=== PATIENT | male | born 1960 | race Two or more races ===

== ENCOUNTER 2023-10-18 06:46 | Outpatient (OUT) | payer BC, SELFPAY ==
[2023-10-18 07:24] LABS: Basophils Absolute Auto 0.1 10^3/uL (0.0-0.1); Basophils Percent Auto 0.8 % (0.2-2.0); Eosinophils Absolute Auto 0.1 10^3/uL (0.0-0.7); Eosinophils Percent Auto 1.4 % (0.9-7.0); Hematocrit 46.8 % (42.0-54.0); Hemoglobin 15.9 g/dL (14.0-18.0); Immature Granulocytes Abs Auto 0.01 10^3/uL (0.00-0.03); Immature Granulocytes Pct Auto 0.1 % (0.0-0.5); Lymphocytes Absolute Auto 4.1 10^3/uL (1.2-3.8); Lymphocytes Percent Auto 48.3 % (20.5-60.0); Mean Corpuscular Hemoglobin 31.8 pg (25.9-34.0); Mean Corpuscular Volume 93.6 fL (80.0-94.0); Mean Platelet Volume 9.6 fL (9.5-13.5); Monocytes Absolute Auto 0.6 10^3/uL (0.3-0.8); Monocytes Percent Auto 6.5 % (1.7-12.0); Neutrophils Absolute Auto 3.7 10^3/uL (1.4-6.5); Neutrophils Percent Auto 42.9 % (43.0-75.0); Platelet Count 337 10^3/uL (150-450); Red Cell Distribution Width 12.7 % (11.0-15.0); White Blood Count 8.6 10^3/uL (4.0-11.0)
[2023-10-18 08:18] LABS: Alanine Aminotransferase 43 U/L (16-63); Albumin Globulin Ratio 1.1; Albumin Level 3.8 g/dL (3.4-5.0); Alkaline Phosphatase 83 U/L (46-116); Anion Gap 15.9; Aspartate Amino Transferase 30 U/L (15-37); BUN Creatinine Ratio 9.8; Bilirubin Total 0.7 mg/dL (0.2-1.0); Calcium 9.2 mg/dL (8.5-10.1); Carbon Dioxide 24.3 mmol/L (21.0-32.0); Chloride 106 mmol/L (98-107); Chol HDL Ratio 6.1; Cholesterol 207 mg/dL (<=200); Estimated GFR (African America >60 (>=60); Estimated GFR (Non-African Ame >60 (>=60); Free T3 3.45 pg/mL (2.18-3.98); Globulin 3.5 g/dL; Glucose 112 mg/dL (74-106); HDL Cholesterol 34 mg/dL (40-60); Potassium 4.2 mmol/L (3.5-5.1); Sodium 142 mmol/L (136-145); Thyroid Stimulating Hormone 0.934 uIU/mL (0.358-3.740); Total Protein 7.3 g/dL (6.4-8.2); Triglycerides 206 mg/dL (<=150); VLDL CHOLESTEROL 41.2 mg/dL
[2023-10-18 14:41] LABS: Estimated Average Glucose 126 mg/dL
== END 2023-10-18 06:47 | disposition home or self-care (01) ==
LOC: LAB 06:50
PROVIDERS: PCP Family Medicine; Visit Provider Family Medicine
DX: Z00.00 Encounter for general adult medical examination without abnormal findings (principal); E78.5 Hyperlipidemia, unspecified; R73.09 Other abnormal glucose; Z12.5 Encounter for screening for malignant neoplasm of prostate
CPT/HCPCS: 36415; 80053; 80061; 83036; 84436; 84443; 84481; 85025; G0103

== ENCOUNTER 2024-11-23 06:54 | Outpatient (OUT) | payer BC, SELFPAY ==
[2024-11-23 07:31] LABS: Basophils Percent Auto 0.3 % (0.2-2.0); Eosinophils Percent Auto 0.2 % (0.9-7.0); Hematocrit 44.7 % (42.0-54.0); Hemoglobin 15.7 g/dL (14.0-18.0); Immature Granulocytes Abs Auto 0.06 10^3/uL (0.00-0.03); Immature Granulocytes Pct Auto 0.4 % (0.0-0.5); Lymphocytes Absolute Auto 3.6 10^3/uL (1.2-3.8); Mean Corpuscular HGB Conc 35.1 g/dL (29.9-35.2); Mean Corpuscular Hemoglobin 32.9 pg (25.9-34.0); Mean Corpuscular Volume 93.7 fL (80.0-94.0); Mean Platelet Volume 9.4 fL (9.5-13.5); Monocytes Absolute Auto 0.9 10^3/uL (0.3-0.8); Monocytes Percent Auto 6.5 % (1.7-12.0); Neutrophils Absolute Auto 9.2 10^3/uL (1.4-6.5); Neutrophils Percent Auto 66.6 % (43.0-75.0); Platelet Count 375 10^3/uL (150-450); Red Blood Count 4.77 10^6/uL (4.70-6.10); Red Cell Distribution Width 12.8 % (11.0-15.0); White Blood Count 13.9 10^3/uL (4.0-11.0)
[2024-11-23 07:54] LABS: Alanine Aminotransferase 38 U/L (16-63); Albumin Globulin Ratio 1.1; Albumin Level 3.8 g/dL (3.4-5.0); Alkaline Phosphatase 90 U/L (46-116); Anion Gap 13.1; Aspartate Amino Transferase 15 U/L (15-37); Bilirubin Total 0.6 mg/dL (0.2-1.0); Calcium 9.2 mg/dL (8.5-10.1); Chloride 106 mmol/L (98-107); Chol HDL Ratio 3.4; Cholesterol 159 mg/dL (<=200); Estimated GFR (African America >60 (>=60 mL/min/1.73m^2); Estimated GFR (Non-African Ame >60 (>=60 mL/min/1.73m^2); Free T3 3.06 pg/mL (2.18-3.98); Globulin 3.4 g/dL; Glucose 110 mg/dL (74-106); HDL Cholesterol 47 mg/dL (40-60); LDL Cholesterol Calculated 90.6 mg/dL; Potassium 4.1 mmol/L (3.5-5.1); Sodium 140 mmol/L (136-145); Thyroid Stimulating Hormone 0.589 uIU/mL (0.358-3.740); Total Protein 7.2 g/dL (6.4-8.2); Triglycerides 107 mg/dL (<=150); VLDL CHOLESTEROL 21.4 mg/dL
[2024-11-23 07:59] LABS: Prostate Specific Antigen Scrn 1.17 ng/mL (<=4.00)
[2024-11-23 09:09] LABS: Estimated Average Glucose 131 mg/dL; Glycohemoglobin A1C 6.2 % (4.5-6.2)
== END 2024-11-23 06:55 | disposition home or self-care (01) ==
LOC: LAB 06:56
PROVIDERS: PCP Family Medicine; Visit Provider Family Medicine
DX: Z00.00 Encounter for general adult medical examination without abnormal findings (principal)
CPT/HCPCS: 36415; 80053; 80061; 83036; 84436; 84443; 84481; 85025; G0103

== ENCOUNTER 2024-11-25 08:22 | Outpatient (REF) | payer BC, SELFPAY ==
--- OUTSIDE RECORDS SUMMARY | 2024-05-28 12:15 | XMS_ITS ---
Author Organization The [facility] in [place] Address [address] [place] [address] Care Team Providers Care Cured Meat Packing Supervisor Name Role Phone Domitila Buck Primary Care [...] Back pain (M54.9) Active confirmed Vital Signs Blood pressure systolic 132 mm Hg 05/28/20 24 Blood pressure diastolic 90 mm Hg 024 Height 65 in 05/28/2024 Weight 174.8 lbs 05/28/2024 BMI 29.09 kg/m2 05/28/2024 Encounters Encounter Location Date Provider Diagnosis [facility] [address] [place] [address] 05/28/2024 Buck Ramesh Back pain M54.9 Assessments [...] * Chuy SMITH CDOB:1960 (63 yo M)Acc No.[id number]:05/28/2024 Progress Note Patient: Chuy TEAGUE Provider: Frida Ramesh ([facility])MD :1960 A ge:63 Y S ex:Male Date:05/28/2024 Address:[address] [place], [place] [id number] Check In:04:02 PM ESTCheck O ut:04:52 PM [...] d enies. M usculoskeletal: Comments S ee [facility] for details. N eurologic: Dizziness d [...] 9 6372 THERAP.INJ. OF MED. INTRAMUSCULAR OR [id number] TMC ACET,PER 10MG., Units: 8.00 J1885 TORADOL, PER 15 MG, Units: 4.00 * Preventive Medicine: Screenings/Counseling: B MN ACTION PLAN Above Normal BMI Follow-up D ietary management education, guidance, and counseling * * Sign off status: Completed Visit Status: C HK (Check Out) true * Provider: Frida Ramesh ([facility])MD Date: 07/28/2023 Generated for Printi brittney/Jeffery/eTransmitting on: 0 11/26/2024 08:05 AM EDT History and Physical Notes * HPI (History of Present Illness) Category Sub-Category Detail Notes Category Not es General bakcpain - started 2-3 week ago - went o chiro - getting worse some pain into R buttocks but not into - occ getting electric shocks into legs Examination Category Sub-Category Detail Notes Category Not es General Examination GENERAL APPEARANCE: in no ac [place] distress, well developed, well nourished CARDIO: S1, S2 normal, no mu rmurs, rubs, gallops LUNGS: clear to auscultatio n bilaterally NEUROLOGIC: alert, oriented to t kiley, place, & person EXTREMITIES: no clubbing, cyanosi s, or edema MUSCULOSKELETAL: poor rom in back
--- OUTSIDE RECORDS SUMMARY | 2024-11-16 11:45 | XMS_ITS ---
Author Organization The [facility] in [place] Address [address] [place] [address] Care Team Providers Care Event Services Manager Name Role Phone Buck Ramesh Primary Care Provider Allergies No Known Allergies REASON FOR VISIT patient is co arthritis in his hands and knees, asking for an injection Medications Medication SIG (Take, Route, Fr equency, Duration) Notes Start Date End Date Status Protonix 40 MG 1 tablet Orally Ever y Evening for 30 day(s) Active Meloxicam 15 MG 1 tablet Orally Once a day for 30 days 11/16/2024 Active Social History Tobacco Use: Social History Observation Description Date Details (start date - stop date) Former Smoker 07/08/1975 - 07/08/2004 Tobacco Use/Smoking Question Answer Notes Patient is a former smoker When did you start smoking? 07/08/1975 When did you stop smoking? 07/08/2004 AUDIT-C (Standard) Question Answer Notes Did you have a drink containing alcohol in the p ast year? No Points 0 Interpretation Negative Vital Signs Blood pressure systolic 112 mm Hg 11/17/19 25 Blood pressure diastolic 70 mm Hg 025 Height 65 in 11/16/2024 Weight 169.2 lbs 11/16/2024 BMI 28.15 kg/m2 11/16/2024 Encounters Encounter Location Date Provider Diagnosis [facility] [address] [place] [address] 11/16/2024 Buck Ramesh Arthritis M19.90 ; Back pain M54.9 and Well adult Z00.00 Assessments Encounter Date Diagnosis (ICD Code) Assessment Notes Treatment Notes Treatment Clinical Notes Section Notes 11/16/2024 Arthritis (ICD-10 - M19.90) 11/16/2024 Back pain (ICD-10 - M54.9) 11/16/2024 Well adult (ICD-10 - Z00.00) Plan Of Treatment Medication Medication Name Sig Start Date Stop Date Notes Meloxicam 15 MG 1 tablet Orally Once a day for 30 days 06/2025 Pending Test Test Name Order Date HEMOGLOBIN A1C (GLYCO) 11/16/2024 LIPID PANEL (CHOL/TRIG/HDL/LDL) 11/17/19 STOOL OCCULT BLOOD 11/16/2024 THYROID PANEL (T4/TSH/FREE T3) PSA, SCREENING 11/16/2024 CMP (COMP MET AMIN) w/eGFR CKD-EPI 2024 CBC WITH DIFF 11/16/2024 Medications Administered Medication Instructions Date of Administration Dosage Notes Ketorolac Tromethamine 11/16/2024 60 mg Triamcinolone 40 mg/ml 11/16/2024 120 mg Progress Notes * KATIE Chuy CDOB:1960 (64 yo M)Acc No.[id number]:11/16/2024 Progress Note Patient: Chuy TEAGUE C Provider: Frida Ramesh ([facility])MD :1960 A ge:64 Y S ex:Male Date:11/16/2024 Address:[address] [place], [place] [id number] Check In:03:45 PM ESTCheck O ut:04:30 PM EST Subjective: * Chief Complaints: * P atient is co arthritis in his hands and knees, asking for an injection * HPI: G eneral: artritis acting up - no injury. * ROS: E ENT: hearing changes d enies. v isual changes d enies.?non-healing mouth sores d enies. s wollen glands or neck lumps d enies. h oarseness d enies. s ore throat d enies. d ifficulty swallowing d enies. n ose bleeds d enies. n keith congestion d enies. e ar ache d enies. e ar discharge?denies. r inging in ears d enies. l ight sensitivity d enies. e ye pain d enies. b lurring d enies. e ye irritation d enies. d ouble vision d enies.?vision loss d enies. G eneral/Constitutional: Sweats: D enies. F atigue d enies. S leep problems d enies. A norexia d enies. M alaise d enies. W eight loss d enies.?Fatigue or Weakness d enies. F ever or Chills d enies. C ardiovascular: Shortness of Breath w/lying flat d enies. L ightheadedness/dizziness d enies. C hest tightness/ heavy pressure d enies. S welling of legs, ankles, or feet d enies. W aking up with shortness of breath d enies. C hest pain denies. P alpitations d enies. W eight gain d enies. R espiratory: Chronic or frequent cough d enies. C oughing up blood?denies. D ifficulty breathing d enies. P roductive cough d enies. S noring?denies. S hortness of breath that awakens from sleep (PND) d enies. C hest pain d enies. S putum production d enies. W heezing d enies. M usculoskeletal: Joint pain d enies. J oint Fluid d enies. B ack pain d enies. K nee pain d enies. N siva pain d enies. J oint Stiffness d enies. M uscle cramps d enies. W eakness of muscles d enies. A rthritis d enies. M uscle aches d enies. P ain in shoulder(s) d enies. S wollen joints d enies. * Active Problem List M54.2 Neck pain Modified On:10/29/2022/U Status:confirmed M19.90 Arthritis Modified On:10/29/2022U Status:confirmed M25.519 Shoulder pain Modified On:10/29/2022U Status:confirmed K29.70 Gastritis Modified On:10/16/2023U Status:confirmed Z00.00 Well adult Modified On:10/16/2023U Status:confirmed U07.1 COVID-19 Modified On:10/29/2022W/U Status:confirmed M54.9 Back pain Modified On:05/28/2024W/U Status:confirmed * Medical History: * Surgical History: N o Surgical History documented. * Hospitalization/Major Diagno stic Procedure: N o Hospitalization History. * Family History: F ather: . M other: . B rother(s): alive. S ister(s): alive. S on(s): alive. 3 brother(s) , 3 sister(s) . 3 son(s) . . * Social History: T obacco Use: T obacco Use/Smoking P atient is a f ormer smoker W hen did you start smoking? 0 07/08/1975 W hen did you stop smoking? 0 07/08/2004 D rug/Alcohol: A MITZY-C (Standard) D id you have a drink containing alcohol in the past year? N o P oints 0 I nterpretation N egative * Medications: T akingProtonix(Pantoprazole Sodium) 40 MG Tablet Delayed Release 1 tablet Orally Every Evening Medication List reviewed and reconciled with the patientTaking Protonix(Pantoprazole Sodium) 40 MG Tablet Delayed Release 1 tablet Orally Every Evening Medication List reviewed and reconciled with the patient * Allergies: N .K.D.A.no[Allergies Verified] Objective: * Vitals: W t:169.2lbs, Ht: 65 in, BP:112/70mm Hg, BMI:28.15Index, Ht-cm: 165.1 cm, Wt-k.75 kg. * Examination: P hysical Exam: GENERAL: w ell developed, well nourished, in no acute distress. HEAD: n ormocephalic/atraumatic. EYES: p upils equal, round and reactive to light, conjunctivae and sclerae normal. EARS: n o deformity or lesion of external ear, canals and TM appear normal bilaterally, TM's intact, not inflamed with normal light reflex, hearing grossly normal to conversational speech. NOSE: n o deformity, discharge, inflammation, or lesions.? MOUTH: m ucous membranes moist, normal oropharynx and posterior pharynx without lesions or exudates, tongue normal, dentition normal. NECK: n siva supple, no masses or palpable cervical nodes, trachea midline, thyroid without nodules, masses, tenderness, or enlargement. CHEST: n o chest wall deformity, no chest wall tenderness.? LUNGS: n ormal respiratory effort and clear to auscultation, no wheezes, rales, or rhonchi, good air exchange. CARDIO: r egular rate and rhythm, normal S1 and S2, nor murmur, rub, or gallop. PULSES: n ormal capillary refill. ABDOMEN: s oft, non-distended, non-tender, no masses. MUSCULOSKELETAL: n o deformity or scoliosis noted, normal range of motion, joints normal, no erythema, edema, effusion, or ecchymosis. EXTREMITY: n o clubbing, cyanosis, edema, or deformity with normal ROM in both upper and lower bilateral extremities. NEUROLOGIC: g rossly normal. SKIN: n o rashes, ulcerations, or suspicious lesions. LYMPH NODES: n o cervical adenopathy, nodes normal. MENTAL STATUS: a lert and oriented x3, normal mood and affect. Assessment: * Assessment: 1. A rthritis - M19.90 (Primary) 2 . B ack pain - M54.9 3 .?Well adult - Z00.00 Plan: * Treatment: 2. W ell adult L AB: HEMOGLOBIN A1C (GLYCO) L AB: LIPID PANEL (CHOL/TRIG/HDL/LDL) L AB: STOOL OCCULT BLOOD L AB: THYROID PANEL (T4/TSH/FREE T3) L AB: PSA, SCREENING L AB: CMP (COMP MET AMIN) w/eGFR CKD-EPI L AB: CBC WITH DIFF * Therapeutic Injections: Triamcinolone 40 mg/ml : 120 mg (Route: Intramuscular) given by ALONA Velazquez on right deltoid (Arthritis) Ketorolac Tromethamine : 60 mg (Route: Intramuscular) given by ALONA Velazquez on left deltoid (Arthritis) * Procedure Codes: 9 6372 THERAP.INJ. OF MED. INTRAMUSCULAR OR [id number] TORADOL, PER 15 MG, Units: 4.00 [id number] TMC ACET,PER 10MG., Units: 12.00 * Preventive Medicine: Screenings/Counseling: B OK ACTION PLAN Above Normal BMI Follow-up D ietary management education, guidance, and counseling * * Sign off status: Completed Visit Status: C HK (Check Out) true * Provider: Frida Ramesh ([facility])MD Date: 0 11/16/2024 Generated for Printi ng/Faxing/eTransmitting on: 0 11/26/2024 08:24 AM EDT History and Physical Notes * HPI (History of Present Illness) Category Sub-Category Detail Notes Category Not es General artritis acting up - no injury Examination Category Sub-Category Detail Notes Category Not es Physical Exam GENERAL: well developed, well nourished, in no acute distress HEAD: normocephalic/atraum atic EYES: pupils equal, round and reactive to light, conjunctivae and sclerae normal EARS: no deformity or lesi on of external ear, canals and TM appear normal bilaterally, TM's intact, not inflamed with normal light reflex, hearing grossly normal to conversational speech NOSE: no deformity, discha rge, inflammation, or lesions MOUTH: mucous membranes parul st, normal oropharynx and posterior pharynx without lesions or exudates, tongue normal, dentition normal NECK: neck supple, no mass es or palpable cervical nodes, trachea midline, thyroid without nodules, masses, tenderness, or enlargement CHEST: no chest wall deform ity, no chest wall tenderness LUNGS: normal respiratory e ffort and clear to auscultation, no wheezes, rales, or rhonchi, good air exchange CARDIO: regular rate and rhy thm, normal S1 and S2, nor murmur, rub, or gallop PULSES: normal capillary ref ill ABDOMEN: soft, non-distended, non-tender, no masses RECTAL: MUSCULOSKELETAL: no deformity or scol iosis noted, normal range of motion, joints normal, no erythema, edema, effusion, or ecchymosis EXTREMITY: no clubbing, cyanosi s, edema, or deformity with normal ROM in both upper and lower bilateral extremities NEUROLOGIC: grossly normal SKIN: no rashes, ulceratio ns, or suspicious lesions LYMPH NODES: no cervical adenopat hy, nodes normal MENTAL STATUS: alert and oriented x 3, normal mood and affect
--- OUTSIDE RECORDS SUMMARY | 2024-11-23 08:57 | XMS_ITS ---
Author Organization The [facility] in [place] Address [address] [place] [address] Care Team Providers Care Crane Assembler Name Role Phone Buck Ramesh Primary Care Provider REASON FOR VISIT review labs- SEE NOTE Problems Problem Type SNOMED Code ICD Code Onset Dates Problem Status W/U Status Risk Notes Problem Leukocytosis ([id number]) Elevated WBC count (D72.829) Active confirmed Encounters Encounter Location Date Provider Diagnosis [facility] [address] [place] [address] 11/23/2024 Buck Ramesh Elevated WBC count D72.829 Assessments Encounter Date Diagnosis (ICD Code) Assessment Notes Treatment Notes Treatment Clinical Notes Section Notes 11/23/2024 Elevated WBC count (ICD-10 - D72.829) Plan Of Treatment Pending Test Test Name Order Date CBC AUTO DIFF 11/23/2024 Progress Notes * Chuy WILSON CDOB:1960 (64 yo M)Acc No.[id number]:11/23/2024 Patient: Zoya KO Chuy Abdul :1960 A ge:64 Y S ex:Male Address:[address] [place] [address] Subjective: * Chief Complaints: * r eview labs- SEE NOTE * Medical History: * Surgical History: * Hospitalization/Major Diagno stic Procedure: * Medications: Objective: * Vitals: * Physical Examination: Assessment: * Assessment: 1. E levated WBC count - D72.829 (Primary) Plan: * Treatment: * Procedure Codes: * true * Date: Generated for Printi ng/Faxing/eTransmitting on: 0 11/26/2024 08:05 AM EDT
--- OUTSIDE RECORDS SUMMARY | 2024-11-26 08:05 | XMS_ITS | Patient Health Record ---
Author Organization The [facility] in [place] Address [address] [place] [address] Care Team Providers Care Mapping Specialist Name Role Phone Buck Ramesh Primary Care Provider [phone] Allergies No Known Allergies Results Component Value Reference Range Notes CBC AUTO DIFF Reviewed date:11/23/2024 12:58:07 PM Interpretation: Performing Lab: Notes/Report: [facility] , White Blood Count 13.9 4.0-11.0 10 3/uL Red Blood Count 4.77 4.70-6.10 10 6/uL Hemoglobin 15.7 14.0-18.0 g/dL Hematocrit 44.7 42.0-54.0 % Mean Corpuscular Volume 93.7 80.0-94.0 fL Mean Corpuscular Hemoglobin 32.9 25.9-34.0 pg Mean Corpuscular HGB Conc 35.1 29.9-35.2 g/dL Red Cell Distribution Width 12.8 11.0-15.0 % Platelet Count 375 150-450 10 3/uL Mean Platelet Volume 9.4 9.5-13.5 fL Neutrophils Percent Auto 66.6 43.0-75.0 % Lymphocytes Percent Auto 26.0 20.5-60.0 % Monocytes Percent Auto 6.5 1.7-12.0 % Eosinophils Percent Auto 0.2 0.9-7.0 % Basophils Percent Auto 0.3 0.2-2.0 % Immature Granulocytes Pct Auto 0.4 0.0-0.5 % Neutrophils Absolute Auto 9.2 1.4-6.5 10 3/uL Lymphocytes Absolute Auto 3.6 1.2-3.8 10 3/uL Monocytes Absolute Auto 0.9 0.3-0.8 10 3/uL Eosinophils Absolute Auto 0.0 0.0-0.7 10 3/uL Basophils Absolute Auto 0.0 0.0-0.1 10 3/uL Immature Granulocytes Abs Auto 0.06 0.00-0.03 10 3/uL Performing Lab: see note ML - [facility] LB GLYCOHEMOGLOBIN A1C Reviewed date:11/23/2024 12:58:07 PM Interpretation: Performing Lab: Notes/Report: [facility] , Glycohemoglobin A1C 6.2 4.5-6.2 % ADA RECOMMENDED LIMIT 4.0 - 6.0 ADA THERAPEUTIC TARGET < 7.0 ACTION SUGGESTED > 7.0 Estimated Average Glucose 131 Performing Lab: see note [facility] PROF 14(COMP METB) Reviewed date:11/23/2024 12:58:07 PM Interpretation: Performing Lab: Notes/Report: [facility] , Sodium 140 136-145 mmol/L Potassium 4.1 3.5-5.1 mmol/L Chloride 106 98-107 mmol/L Carbon Dioxide 25.0 21.0-32.0 mmol/L Anion Gap 13.1 Glucose 110 74-106 mg/dL Blood Urea Nitrogen 18.0 7.0-18.0 mg/dL Creatinine 0.90 0.70-1.30 mg/dL Estimated GFR ( Marlee >60 >=60 mL/min/1.73m 2 Estimated GFR (Non- Ally >60 >=60 mL/min/1.73m 2 BUN Creatinine Ratio 20.0 Calcium 9.2 8.5-10.1 mg/dL Bilirubin Total 0.6 0.2-1.0 mg/dL Aspartate Amino Transferase 15 15-37 U/L Alanine Aminotransferase 38 16-63 U/L Alkaline Phosphatase 90 46-116 U/L Total Protein 7.2 6.4-8.2 g/dL Albumin Level 3.8 3.4-5.0 g/dL Globulin 3.4 Albumin Globulin Ratio 1.1 Performing Lab: see note - [facility] T4 Reviewed date:11/23/2024 12:58:07 PM Interpretation: Performing Lab: Notes/Report: [facility] , T4 Thyroxine 6.20 4.50-12.10 ug/dL Performing Lab: see note ML - [facility] LB TSH Reviewed date:11/23/2024 12:58:07 PM Interpretation: Performing Lab: Notes/Report: [facility] , Thyroid Stimulating Hormone 0.589 0.358-3.740 u IU/mL Performing Lab: see note ML - [facility] LB LIPID PROFILE Reviewed date:11/23/2024 12:58:07 PM Interpretation: Performing Lab: Notes/Report: [facility] , Triglycerides 107 <=150 mg/dL Cholesterol 159 <=200 mg/dL HDL Cholesterol 47 40-60 mg/dL > or =60 mg/dl - LOW CARDIOVASCULAR RISK <40 mg/dl - HIGH CARDIOVASCULAR RISK LDL Cholesterol Calculated 90.6 <100 mg/dl OPTIMAL 100-129 mg/dl NEAR OR ABOVE OPTIMAL 130-159 mg/dl BORDERLINE HIGH 160-189 mg/dl HIGH >190 mg/dl VERY HIGH VLDL CHOLESTEROL 21.4 Chol HDL Ratio 3.4 3.3 - 4.4 LOW RISK 4.4 - 7.1 AVERAGE RISK 7.1 - 11.0 MODERATE RISK >11.0 HIGH RISK Performing Lab: see note ML - [facility] LB FREE T3 Reviewed date:11/23/2024 12:58:07 PM Interpretation: Performing Lab: Notes/Report: [facility] , Free T3 3.06 2.18-3.98 pg/mL Performing Lab: see note ML - [facility] LB PSA SCREENING Reviewed date:11/23/2024 12:58:07 PM Interpretation: Performing Lab: Notes/Report: [facility] , Prostate Specific Antigen Scrn 1.17 <=4.00 ng/mL Performing Lab: see note ML - [facility] LB Reason For Referral No Information Medications Medication SIG (Take, Route, Fr equency, Duration) Notes Start Date End Date Status Protonix 40 MG 1 tablet Orally Ever y Evening for 30 day(s) Active Meloxicam 15 MG 1 tablet Orally Once a day for 30 days 11/16/2024 Active Immunizations Vaccine Route Administration Date Status Comme nts Flu, Flucelvax (0356-0564) (65444) 6 mos and older, single-dose syringe IM Intramuscular 04/25/2023 Administered Flu, Flucelvax (81659) 6 mos and older, single-dose syringe IM Intramuscular 04/27/2024 Administered Social History Tobacco Use: Social History Observation Description Date Details (start date - stop date) Former Smoker 07/08/1975 - 07/08/2004 Tobacco Use/Smoking Question Answer Notes Patient is a former smoker When did you start smoking? 07/08/1975 When did you stop smoking? 07/08/2004 Alcohol Screen (Audit-C) Question Answer Notes Did you have a drink contain ing alcohol in the past year? Yes How many drinks did you have on a typical day when you were drinking in the past year? 1 or 2 drinks (0 point) How often did you have a dri nk containing alcohol in the past year? Weekly (3 points) Points 3 Interpretation Negative AUDIT-C (Standard) Question Answer Notes Did you have a drink containing alcohol in the p ast year? No Points 0 Interpretation Negative Problems Problem Type SNOMED Code ICD Code Onset Dates Problem Status W/U Status Risk Notes Problem Neck pain (89030748) Neck pain (M54.2) Active confirmed Problem Arthritis (7856372) Arthritis (M19.90) Active confirmed Problem Shoulder pain (86565065) Shoulder pain (M25.519) Active confirmed Problem Back pain (694624725) Back pain (M54.9) Active confirmed Problem Leukocytosis (139672327) Elevated WBC count (D72.829) Active confirmed Problem Gastritis (3242051) Gastritis (K29.70) Active confirmed Problem Well adult (362798878) Well adult (Z00.00) Active confirmed Problem COVID-19 (980246019) COVID-19 (U07.1) Active confirmed Vital Signs Blood pressure diastolic 70 mm Hg 11/16/2024 Height 65 in 11/16/2024 Blood pressure systolic 112 mm Hg 11/16/2024 Weight 169.2 lbs 11/16/2024 BMI 28.15 kg/m2 11/16/2024 Encounters Encounter Location Date Provider Diagnosis [facility] [address] [place] [address] 11/23/2024 Buck Hoy Elevated WBC count D72.829 [facility] [address] [place] [address] 05/28/2024 Buck Hoy Back pain M54.9 [facility] [address] [place] [address] 11/16/2024 Buck Ramesh Arthritis M19.90 ; B ack pain M54.9 and Well adult Z00.00 [facility] [address] [place] [address] 04/27/2024 Buck Ramesh Encounter for immunization Z23 Assessments Encounter Date Diagnosis (ICD Code) Assessment Notes Treatment Notes Treatment Clinical Notes Section Notes 04/27/2024 Encounter for immunization (ICD-10 - Z23) 05/28/2024 Back pain (ICD-10 - M54.9) 11/16/2024 Arthritis (ICD-10 - M19.90) 11/23/2024 Elevated WBC count (ICD-10 - D72.829) 11/16/2024 Back pain (ICD-10 - M54.9) 11/16/2024 Well adult (ICD-10 - Z00.00) 05/28/2024 Other Recommended to rest and use a heating pad on the area. Take NSAIDs for pain as needed Plan Of Treatment Pending Test Test Name Order Date CMP (COMPLETE METABOLIC PANEL) 4 HEMOGLOBIN A1C (GLYCO) 11/16/2024 HEMOGLOBIN A1C (GLYCO) 10/16/2023 LIPID PANEL (CHOL/TRIG/HDL/LDL) 11/17/19 25 LIPID PANEL (CHOL/TRIG/HDL/LDL) 10/16/19 24 CBC WITH DIFF 10/16/2023 PSA, PROSTATE-SPECIFIC ANTIGEN 4 STOOL OCCULT BLOOD 11/16/2024 CBC AUTO DIFF 11/23/2024 THYROID PANEL (T4/TSH/FREE T3) 5 THYROID PANEL (T4/TSH/FREE T3) 4 PSA, SCREENING 11/16/2024 CMP (COMP MET AMIN) w/eGFR CKD-EPI 2024 CBC WITH DIFF 11/16/2024 Insurance Providers Payer Name Payer Address Payer Phone Subscriber Number Group Number Insured Name Patient Relationship to Insured Coverage Start Date Coverage End Date MONIKA CRAWFORD [address] [place] [address] [id number] 1 Chuy Smith Self - patient is the insured Medications Administered Medication Instructions Date of Administration Dosage Notes Kenalog 12/20/2022 120 mg 120 Ketorolac Tromethamine 12/20/2022 60 mg 60 Ketorolac Tromethamine 05/28/2024 60 mg Ketorolac Tromethamine 11/16/2024 60 mg Triamcinolone 40 mg/ml 05/28/2024 80 mg Triamcinolone 40 mg/ml 11/16/2024 120 mg Medical (General) History Medical History History ICD Code Well adult Z00.00 Gastritis K29.70 COVID-19 U07.1 Neck pain M54.2 Arthritis M19.90 Shoulder pain M25.519
[2024-11-26 08:47] LABS: Internal Control Within Normal Limits; Occult Blood Negative
== END 2024-11-25 08:23 | disposition home or self-care (01) ==
LOC: LAB 08:22
PROVIDERS: PCP Family Medicine; Visit Provider Family Medicine
DX: Z00.00 Encounter for general adult medical examination without abnormal findings (principal)
CPT/HCPCS: G0328

== ENCOUNTER 2024-12-08 06:46 | Outpatient (OUT) | payer BC, SELFPAY ==
--- OUTSIDE RECORDS SUMMARY | 2024-05-28 12:15 | XMS_ITS ---
Author Organization The [facility] in [place] Address [address] [place] [address] Care Team Providers Care Brim Molder Name Role Phone Domitila Buck Primary Care Provider Allergies No Known Allergies REASON FOR VISIT lower back pain- ongoing, said is better than it was a few weeks ago Medications Medication SIG (Take, Route, Fr equency, Duration) Notes Start Date End Date Status Protonix 40 MG 1 tablet Orally Ever y Evening for 30 day(s) 10/16/2023 Active Social History Tobacco Use: Social History Observation Description Date Details (start date - stop date) Former Smoker 07/08/1975 - 07/08/2004 Tobacco Use/Smoking Question Answer Notes Patient is a former smoker When did you start smoking? 07/08/1975 When did you stop smoking? 07/08/2004 Problems Problem Type SNOMED Code ICD Code Onset Dates Problem Status W/U Status Risk Notes Problem Back pain (M54.9) Active confirmed Vital Signs Weight 174.8 lbs 05/28/2024 Height 65 in 05/28/2024 Blood pressure systolic 132 mm Hg 05/28/20 24 Blood pressure diastolic 90 mm Hg 024 BMI 29.09 kg/m2 05/28/2024 Encounters Encounter Location Date Provider Diagnosis [facility] [address] [place] [address] 05/28/2024 Buck Ramesh Back pain M54.9 Assessments Encounter Date Diagnosis (ICD Code) Assessment Notes Treatment Notes Treatment Clinical Notes Section Notes 05/28/2024 Back pain (ICD-10 - M54.9) 05/28/2024 Other Recommended to rest and use a heating pad on the area. Take NSAIDs for pain as needed Plan Of Treatment Treatment Notes Assessment Notes Other Recommended to rest and use a heating pad on the area. Take NSAIDs for pain as needed Medications Administered Medication Instructions Date of Administration Dosage Notes Ketorolac Tromethamine 05/28/2024 60 mg Triamcinolone 40 mg/ml 05/28/2024 80 mg Progress Notes * Chuy SMITH CDOB:1960 (63 yo M)Acc No.[id number]:05/28/2024 Progress Note Patient: Chuy TEAGUE Provider: Frida Ramesh ([facility])MD :1960 A ge:63 Y S ex:Male Date:05/28/2024 Address:[address] [place], [place] [id number] Check In:04:02 PM ESTCheck O ut:04:52 PM EST Subjective: * Chief Complaints: * L ower back pain- ongoing, said is better than it was a few weeks ago * HPI: G eneral: bakcpain - started 2-3 week ago - went o chiro - getting worse some pain into R buttocks but not into - occ getting electric shocks into legs. B ack Pain: The patient complains of -. The symptoms have been present for 1-2 days. The patient believes symptoms are injury related No. The symptoms are mild. Symptomatic treatment has included heating pad, stretching. Associated symptoms include None. * ROS: G eneral/Constitutional: Lightheadedness d enies. C hange in appetite d enies. W eight Change d enies. C ardiovascular: Irregular heartbeat d enies. S welling in hands/feet?denies. R espiratory: Shortness of breath d enies. S hortness of breath with exertion d enies. W heezing d enies. M usculoskeletal: Comments S ee [facility] for details. N eurologic: Dizziness d enies. F ainting d enies. H eadache?denies. * Active Problem List M54.2 Neck pain Modified On:10/29/2022W/U Status:confirmed M19.90 Arthritis Modified On:10/29/2022/U Status:confirmed M25.519 Shoulder pain Modified On:10/29/2022/U Status:confirmed K29.70 Gastritis Modified On:10/16/2023/U Status:confirmed Z00.00 Well adult Modified On:10/16/2023/U Status:confirmed U07.1 COVID-19 Modified On:10/29/2022/U Status:confirmed M54.9 Back pain Modified On:05/28/2024/U Status:confirmed * Medical History: * Surgical History: D enies Past Surgical History * Hospitalization/Major Diagno stic Procedure: D enies Past Hospitalization * Family History: F ather: . M other: . B rother(s): alive. S ister(s): alive. S on(s): alive. 3 brother(s) , 3 sister(s) . 3 son(s) . . * Social History: T obacco Use: T obacco Use/Smoking P atient is a f ormer smoker W hen did you start smoking? 0 07/08/1975 W hen did you stop smoking? 0 07/08/2004 * Medications: T akingProtonix(Pantoprazole Sodium) 40 MG Tablet Delayed Release 1 tablet Orally Every Evening Taking Protonix(Pantoprazole Sodium) 40 MG Tablet Delayed Release 1 tablet Orally Every Evening DiscontinuedOmeprazole 40 MG Capsule Delayed Release 1 capsule 30 minutes before morning meal Orally Once a day Medication List reviewed and reconciled with the patientDiscontinued Omeprazole 40 MG Capsule Delayed Release 1 capsule 30 minutes before morning meal Orally Once a day Medication List reviewed and reconciled with the patient * Allergies: N .K.D.A.no[Allergies Verified] Objective: * Vitals: W t:174.8lbs, Ht: 65 in, BP:132/90mm Hg, BMI:29.09Index, Ht-cm: 165.1 cm, Wt-k.29 kg. * Examination: G eneral Examination: GENERAL APPEARANCE: i n no acute distress, well developed, well nourished. LUNGS: clear to auscultation bilaterally. CARDIO: S1, S2 normal, no murmurs, rubs, gallops. MUSCULOSKELETAL: p oor rom in back. EXTREMITIES: no clubbing, cyanosis, or edema. NEUROLOGIC: alert, oriented to time, place, & person.? Assessment: * Assessment: 1. B ack pain - M54.9 (Primary) Plan: * Treatment: * Therapeutic Injections: Ketorolac Tromethamine : 60 mg (Route: Intramuscular) given by Erika Ryan SA on right deltoid (Back pain) Triamcinolone 40 mg/ml : 80 mg (Route: Intramuscular) given by Erika Ryan SA on left deltoid (Back pain) * Procedure Codes: 9 6372 THERAP.INJ. OF MED. INTRAMUSCULAR OR [id number] TMC ACET,PER 10MG., Units: 8.00 [id number] TORADOL, PER 15 MG, Units: 4.00 * Preventive Medicine: Screenings/Counseling: B SD ACTION PLAN Above Normal BMI Follow-up D ietary management education, guidance, and counseling * * Sign off status: Completed Visit Status: C HK (Check Out) true * Provider: Frida Ramesh ([facility])MD Date: 07/28/2023 Generated for Printi brittney/Jeffery/eTransmitting on: 0 12/08/2024 06:48 AM EDT History and Physical Notes * HPI (History of Present Illness) Category Sub-Category Detail Notes Category Not es General bakcpain - started 2-3 week ago - went o chiro - getting worse some pain into R buttocks but not into - occ getting electric shocks into legs Examination Category Sub-Category Detail Notes Category Not es General Examination GENERAL APPEARANCE: in no ac tribe distress, well developed, well nourished CARDIO: S1, S2 normal, no mu rmurs, rubs, gallops LUNGS: clear to auscultatio n bilaterally NEUROLOGIC: alert, oriented to t kiley, place, & person EXTREMITIES: no clubbing, cyanosi s, or edema MUSCULOSKELETAL: poor rom in back
--- OUTSIDE RECORDS SUMMARY | 2024-11-23 08:57 | XMS_ITS ---
Author Organization The [facility] in [place] Address [address] [place] [address] Care Team Providers Care Curber Name Role Phone Buck Ramesh Primary Care Provider [phone] REASON FOR VISIT review labs- SEE NOTE Problems Problem Type SNOMED Code ICD Code Onset Dates Problem Status W/U Status Risk Notes Problem Elevated WBC count (D72.829) Active confirmed Encounters Encounter Location Date Provider Diagnosis [facility] [address] [place] [address] 11/23/2024 Buck Ramesh Elevated WBC count D72.829 Assessments Encounter Date Diagnosis (ICD Code) Assessment Notes Treatment Notes Treatment Clinical Notes Section Notes 11/23/2024 Elevated WBC count (ICD-10 - D72.829) Plan Of Treatment Pending Test Test Name Order Date CBC AUTO DIFF 11/23/2024 Progress Notes * Chuy SMITH CDOB:1960 (64 yo M)Acc No.[id number]:11/23/2024 Patient: Chuy TEAGUE :1960 A ge:64 Y S ex:Male Address:[address] [place] [phone] Subjective: * Chief Complaints: * r eview labs- SEE NOTE * Medical History: * Surgical History: * Hospitalization/Major Diagno stic Procedure: * Medications: Objective: * Vitals: * Physical Examination: Assessment: * Assessment: 1. E levated WBC count - D72.829 (Primary) Plan: * Treatment: * Procedure Codes: * true * Date: Generated for Printi ng/Faxing/eTransmitting on: 0 12/08/2024 06:49 AM EDT
--- OUTSIDE RECORDS SUMMARY | 2024-12-08 06:48 | XMS_ITS | Patient Health Record ---
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 Phone Buck Ramesh Primary Care Provider Allergies No Known Allergies Results Component Value Reference Range Notes CBC AUTO DIFF Reviewed date:11/23/2024 12:58:07 PM Interpretation: Performing Lab: Notes/Report: [facility] , White Blood Count 13.9 4.0-11.0 10 [...] 3/uL Performing Lab: see note ML - [facility] LB PROF 14(COMP METB) Reviewed date:11/23/2024 12:58:07 PM Interpretation: Performing Lab: Notes/Report: [facility] , Sodium 140 136-145 mmol/L Potassium 4.1 [...] Globulin Ratio 1.1 Performing Lab: see note ML - [facility] LB T4 Reviewed date:11/23/2024 12:58:07 PM Interpretation: Performing Lab: Notes/Report: [facility] , T4 Thyroxine 6.20 4.50-12.10 ug/dL Performing Lab: see note ML - [facility] LB TSH Reviewed date:11/23/2024 12:58:07 PM Interpretation: Performing Lab: Notes/Report: [facility] , Thyroid Stimulating Hormone 0.589 0.358-3.740 u IU/mL Performing Lab: see note ML - [facility] LB LIPID PROFILE Reviewed date:11/23/2024 12:58:07 PM Interpretation: Performing Lab: Notes/Report: [facility] , Triglycerides 107 <=150 mg/dL Cholesterol 159 [...] RISK Performing Lab: see note ML - [facility] GLYCOHEMOGLOBIN A1C Reviewed date:11/23/2024 12:58:07 PM Interpretation: Performing Lab: Notes/Report: [facility] , Glycohemoglobin A1C 6.2 4.5-6.2 % ADA RECOMMENDED LIMIT 4.0 - 6.0 ADA THERAPEUTIC TARGET < 7.0 ACTION SUGGESTED > 7.0 Estimated Average Glucose 131 Performing Lab: see note ML - [facility] FREE T3 Reviewed date:11/23/2024 12:58:07 PM Interpretation: Performing Lab: Notes/Report: [facility] , Free T3 3.06 2.18-3.98 pg/mL Performing Lab: see note ML - [facility] LB Occult Blood* Reviewed date:11/26/2024 08:08:55 PM Interpretation: Performing Lab: Notes/Report: [facility] , Occult Blood Negative Performing Lab: see note ML - [facility] LB PSA SCREENING Reviewed date:11/23/2024 12:58:07 PM Interpretation: Performing Lab: Notes/Report: [facility] , Prostate Specific Antigen Scrn 1.17 <=4.00 ng/mL Performing Lab: see note ML - [facility] LB Reason For Referral No Information Medications Medication SIG (Take, Route, Fr equency, Duration) Notes Start Date End Date Status Protonix 40 MG 1 tablet Orally Ever y Evening for 30 day(s) Active Meloxicam 15 MG 1 tablet Orally Once a day for 30 days 11/16/2024 Active Immunizations Vaccine Route Administration Date Status Comme nts Flu, Flucelvax (6295-0602) (19261) 6 mos and older, single-dose syringe IM Intramuscular 04/25/2023 Administered Flu, Flucelvax (26427) 6 mos and older, single-dose syringe IM [...] W/U Status Risk Notes Problem Neck pain (07977684) Neck pain (M54.2) Active confirmed Problem Arthritis (0297530) Arthritis (M19.90) Active confirmed Problem Shoulder pain (82420871) Shoulder pain (M25.519) Active confirmed Problem Back pain (312844527) Back pain (M54.9) Active confirmed Problem Leukocytosis (131124894) Elevated WBC count (D72.829) Active confirmed Problem Gastritis (1319241) Gastritis (K29.70) Active confirmed Problem Well adult (268013072) Well adult (Z00.00) Active confirmed Problem COVID-19 (074242623) COVID-19 (U07.1) Active confirmed Vital Signs Blood pressure diastolic 70 mm Hg 11/16/2024 Height 65 in 11/16/2024 Blood pressure systolic 112 mm Hg 11/16/2024 Weight 169.2 lbs 11/16/2024 BMI 28.15 kg/m2 11/16/2024 Encounters Encounter Location Date Provider Diagnosis [facility] [address] [place] [address] 05/28/2024 Buck Hoy Back pain M54.9 [facility] [address] [place] [address] 04/27/2024 Buck Ramesh Encounter for immunization Z23 [facility] [address] [place] [address] 11/16/2024 Buck Hoy Arthritis M19.90 ; B ack pain M54.9 and Well adult Z00.00 [facility] [address] [place] [address] 11/23/2024 Buck Ramesh Elevated WBC count D72.829 [...] Coverage End Date MONIKA CRAWFORD [address] [place] [address] [id number] 1 Chuy Smith Self - patient is [...]
[2024-12-08 07:09] LABS: Basophils Absolute Auto 0.1 10^3/uL (0.0-0.1); Basophils Percent Auto 0.6 % (0.2-2.0); Eosinophils Absolute Auto 0.1 10^3/uL (0.0-0.7); Eosinophils Percent Auto 0.5 % (0.9-7.0); Hematocrit 45.5 % (42.0-54.0); Hemoglobin 15.6 g/dL (14.0-18.0); Immature Granulocytes Abs Auto 0.03 10^3/uL (0.00-0.03); Immature Granulocytes Pct Auto 0.3 % (0.0-0.5); Lymphocytes Absolute Auto 3.5 10^3/uL (1.2-3.8); Lymphocytes Percent Auto 35.9 % (20.5-60.0); Mean Corpuscular HGB Conc 34.3 g/dL (29.9-35.2); Mean Corpuscular Hemoglobin 32.6 pg (25.9-34.0); Mean Platelet Volume 9.1 fL (9.5-13.5); Monocytes Absolute Auto 0.7 10^3/uL (0.3-0.8); Monocytes Percent Auto 6.7 % (1.7-12.0); Neutrophils Absolute Auto 5.5 10^3/uL (1.4-6.5); Platelet Count 272 10^3/uL (150-450); Red Blood Count 4.79 10^6/uL (4.70-6.10); Red Cell Distribution Width 12.9 % (11.0-15.0); White Blood Count 9.8 10^3/uL (4.0-11.0)
== END 2024-12-08 06:47 | disposition home or self-care (01) ==
LOC: LAB 06:47
PROVIDERS: PCP Family Medicine; Visit Provider Family Medicine
DX: D72.829 Elevated white blood cell count, unspecified (principal)
CPT/HCPCS: 36415; 85025